=== PATIENT | male | born 1945 | race Caucasian/White ===

== ENCOUNTER 2020-03-25 22:22 | Emergency (ER) | payer MEDICARE, MEDICAID ==
[~2020-03-25] VITALS: Ht 175.3 cm; Wt 93.3 kg
[2020-03-26 00:04] LABS: CLARITY,URINE CLOUDY (Clear); COLOR,URINE RED (Yellow); UA COLLECTION TYPE CLN CATCH MIDSTREAM
[2020-03-26 00:05] LABS: BACTERIA,URINE FEW /HPF (Neg); RBC,URINE TNTC /HPF (0-2); SQUAMOUS EPITHELIAL CELL,UR FEW /LPF (FEW); WBC,URINE 0-4 /HPF (0-4)
[2020-03-26] MEDS ORDERED: LIDOcaine 2% 10ml TOPICAL JELLY (Urojet) MM ONE (02:05)
[2020-03-26 02:48] LABS: BASOPHILS # (AUTO) 0.1 X10'3 (0-0.2); BASOPHILS % (AUTO) 1.2 % (0-1); EOSINOPHILS # (AUTO) 0.2 X10'3 (0-0.9); EOSINOPHILS % (AUTO) 2.1 % (0-6); HEMATOCRIT 38.6 % (42.0-52.0); HEMOGLOBIN 12.8 g/dl (14.0-17.9); LYMPHOCYTES # (AUTO) 2.5 X10'3 (1.1-4.8); LYMPHOCYTES % (AUTO) 28.1 % (21-51); MEAN CORPUSCULAR HEMOGLOBIN 29.2 PG (27.0-31.0); MEAN CORPUSCULAR HGB CONC 33.1 g/dL (33.0-36.5); MEAN CORPUSCULAR VOLUME 88.3 FL (78-98); MEAN PLATELET VOLUME 9.5 FL (7.4-10.4); MONOCYTES # (AUTO) 0.7 X10'3 (0-0.9); MONOCYTES % (AUTO) 8.2 % (2-12); NEUTROPHILS # (AUTO) 5.4 X10'3 (1.8-7.7); NEUTROPHILS % (AUTO) 60.4 % (42-75); PLATELET COUNT 151 X10'3 (140-440); RED BLOOD COUNT 4.37 X10'6 (4.70-6.10); RED CELL DISTRIBUTION WIDTH 14.1 % (11.5-14.5); WHITE BLOOD COUNT 8.9 X10'3 (4.5-11.0)
[2020-03-26 03:02] LABS: ALANINE AMINOTRANSFERASE 16 U/L (12-78); ALBUMIN 3.4 G/DL (3.4-5.0); ALBUMIN/GLOBULIN RATIO 1.1 (1.1-1.5); ALKALINE PHOSPHATASE 88 IU/L (46-116); ANION GAP 8 (8-16); ASPARTATE AMINO TRANSFERASE 13 U/L (10-37); BILIRUBIN,TOTAL 0.5 MG/DL (0.1-1.0); BLOOD UREA NITROGEN 17 MG/DL (7-18); BUN/CREATININE RATIO 17.2 (5.4-32.0); CALCIUM 8.9 MG/DL (8.5-10.1); CHLORIDE 103 MMOL/L (99-107); CREATININE 0.99 MG/DL (0.60-1.10); GLUCOSE 102 MG/DL (70-104); POTASSIUM 3.5 MMOL/L (3.5-5.1); SODIUM 140 MMOL/L (135-145); TOTAL CARBON DIOXIDE 28.9 MMOL/L (24-32); TOTAL PROTEIN 6.5 G/DL (6.4-8.2); eGFR 74 ML/MIN
--- NOTE | 2020-03-26 03:14 | NUR ---
URINE RUNNING CLEAR WITH 2500 ML IRRIGATED. ASHLEY PRECIADO AWARE AND ORDERED TO DISCONTINUE IRRIGATION
[2020-03-26] MEDS ORDERED: cephalexin 500mg capsule PO ONE (03:30)
[2020-03-26] MEDS ORDERED: tamsulosin 0.4mg capsule PO SCH (03:30)
[2020-03-26] MEDS ORDERED: tamsulosin 0.4mg capsule PO ONE (03:30)
[2020-03-26] MEDS ORDERED: CEPH250T PO (03:32)
[2020-03-26] MEDS ORDERED: FLO0.4C PO (03:32)
[2020-03-26 03:39] VITALS: BP 120/77
== END 2020-03-26 03:44 | disposition home or self-care (01) ==
LOC: ER 22:23
DX: R31.0 Gross hematuria (principal); F03.90 Unspecified dementia, unspecified severity, without behavioral disturbance, psychotic disturbance, mood disturbance, and anxiety; I48.91 Unspecified atrial fibrillation; I10 Essential (primary) hypertension; E11.9 Type 2 diabetes mellitus without complications; Z95.1 Presence of aortocoronary bypass graft; Z95.0 Presence of cardiac pacemaker
CPT/HCPCS: 36415; 51700; 80053; 81001; 81003; 85025; 99283; 99284

== ENCOUNTER 2024-02-20 17:41 | Emergency (ER) | payer MEDICAID, MEDICARE ==
[~2024-02-20] VITALS: Ht 175.3 cm; Wt 92.1 kg
[2024-02-20 18:05] VITALS: BP 116/71; PULSE 75; TEMP 97.2; O2SAT 98
[2024-02-20] MEDS ORDERED: HYDR-3965 PO (18:47)
[2024-02-20] MEDS ORDERED: CLIN150C2 PO (18:47)
[2024-02-20 18:51] VITALS: RESP 18
== END 2024-02-20 18:55 | disposition home or self-care (01) ==
LOC: ER 17:42
DX: K04.7 Periapical abscess without sinus (principal); F03.90 Unspecified dementia, unspecified severity, without behavioral disturbance, psychotic disturbance, mood disturbance, and anxiety; I48.91 Unspecified atrial fibrillation; I10 Essential (primary) hypertension; E11.9 Type 2 diabetes mellitus without complications; Z95.1 Presence of aortocoronary bypass graft; Z95.0 Presence of cardiac pacemaker; Z88.0 Allergy status to penicillin; Z88.8 Allergy status to other drugs, medicaments and biological substances; Z79.2 Long term (current) use of antibiotics
CPT/HCPCS: 99283

== ENCOUNTER 2024-10-19 14:35 | Emergency (ER) | payer BC, MEDICARE ==
[~2024-10-19] VITALS: Ht 175.3 cm; Wt 99.1 kg
[2024-10-19 14:35] VITALS: BP 137/77; PULSE 65; RESP 16; TEMP 98; O2SAT 94
[2024-10-19] MEDS: LIDOcaine 1% W/epiNEPHrine 1:100,000 20ml vial IJ ONE (16:14)
[2024-10-19] MEDS: TETanus/Pertussis (Acell)/Diphther VAC/PF (Tdap-Adult) 0.5ml syringe IMVAC ONE (16:14)
[2024-10-19] MEDS ORDERED: CLIN-142 PO (18:02)
== END 2024-10-19 18:15 | disposition home or self-care (01) ==
LOC: ER 14:35
DX: S01.412A Laceration without foreign body of left cheek and temporomandibular area, initial encounter (principal); E11.9 Type 2 diabetes mellitus without complications; F03.90 Unspecified dementia, unspecified severity, without behavioral disturbance, psychotic disturbance, mood disturbance, and anxiety; I10 Essential (primary) hypertension; I48.91 Unspecified atrial fibrillation; Z88.0 Allergy status to penicillin; Z95.0 Presence of cardiac pacemaker; Z95.1 Presence of aortocoronary bypass graft; W22.8XXA Striking against or struck by other objects, initial encounter; Y93.89 Activity, other specified; Y92.89 Other specified places as the place of occurrence of the external cause; Y99.8 Other external cause status
CPT/HCPCS: 12013; 70450; 90471; 90715; 99285; J7030; 99284; A6449